=== PATIENT | male | born 1980 | race Caucasian/White ===

== ENCOUNTER 2018-06-23 14:39 | Emergency (ER) | payer OTHER ==
[~2018-06-23] VITALS: Ht 193 cm; Wt 120.7 kg
== END 2018-06-23 19:36 | disposition home or self-care (01) ==
LOC: ER 14:39
DX: J09.X2 Influenza due to identified novel influenza A virus with other respiratory manifestations (principal); B34.9 Viral infection, unspecified

== ENCOUNTER 2019-01-09 20:59 | Emergency (ER) | payer OTHER ==
[~2019-01-09] VITALS: Ht 193 cm; Wt 123.8 kg
== END 2019-01-10 00:32 | disposition home or self-care (01) ==
LOC: ER 20:59
DX: S92.345A Nondisplaced fracture of fourth metatarsal bone, left foot, initial encounter for closed fracture (principal); W22.8XXA Striking against or struck by other objects, initial encounter; Y93.89 Activity, other specified; Y92.89 Other specified places as the place of occurrence of the external cause; Y99.8 Other external cause status